=== PATIENT | male | born 1970 | race Caucasian/White ===

== ENCOUNTER → 2018-03-19 14:37 | Outpatient (CLI) | payer BC, SELFPAY ==
[2018-03-19 16:03] LABS: PSA,Total- Diagnostic 5.49 ng/mL (0.0-4.0)
== END ==
PROVIDERS: Family Provider Family Medicine; PCP Family Medicine; Referring Provider Nurse Practitioner Adult Health; Visit Provider Nurse Practitioner Adult Health
DX: R97.20 Elevated prostate specific antigen [PSA] (principal)
CPT/HCPCS: 36415; 84153

== ENCOUNTER → 2018-04-01 16:28 | Outpatient (CLI) | payer BC, SELFPAY ==
[2018-04-01 17:43] LABS: PSA,Total- Diagnostic 5.19 ng/mL (0.0-4.0)
== END ==
PROVIDERS: Family Provider Family Medicine; PCP Family Medicine; Referring Provider Nurse Practitioner Adult Health; Visit Provider Nurse Practitioner Adult Health
DX: R97.20 Elevated prostate specific antigen [PSA] (principal)
CPT/HCPCS: 36415; 84153

== ENCOUNTER → 2018-05-06 16:11 | Outpatient (CLI) | payer BC, SELFPAY ==
[2018-05-06 17:39] LABS: PSA,Total- Diagnostic 4.88 ng/mL (0.0-4.0)
== END ==
PROVIDERS: Family Provider Family Medicine; PCP Family Medicine; Referring Provider Urology; Visit Provider Urology
DX: R97.20 Elevated prostate specific antigen [PSA] (principal)
CPT/HCPCS: 36415; 84153

== ENCOUNTER → 2018-05-15 12:31 | Outpatient (CLI) | payer BC, SELFPAY ==
--- NOTE | 2018-05-15 12:36 | MRI_ITS ---
STUDY: MRI PELVIS WITHOUT AND WITH IV CONTRAST REASON FOR EXAM: Male, 48 years old. Elevated prostate specific antigen. Family history of prostate cancer. TECHNIQUE: Multisequence multiplanar MRI of the pelvis including small FOV views, multi parametric technique including diffusion-weighted imaging, and contrast-enhanced imaging (without multiphase dynamic contrast enhancement). COMPARISON: None. FINDINGS: Body wall soft tissues: No acute process. No inguinal lymphadenopathy. Osseous structures: There is a sharply demarcated densely calcified sclerotic focus within the right femoral head neck junction most consistent with a benign osteoma. No other evidence of blastic metastatic disease. There is hypointensity on T2-weighted imaging within the fatty marrow of the low lumbar spine and multiple sacral vertebral bodies suggesting red marrow reactivation. Intrapelvic lymphadenopathy: There is no apparent retroperitoneal or perirectal lymphadenopathy. Pelvic ovary: Normal appearance of the evaluated portions of the small and large bowel. Unremarkable urinary bladder. Prostate: -Within the base of the right prostate, involving the posterior transitional zone and posterior peripheral zone there is a defined T2 hypointense focus that measures approximately 1.5 cm anterior-posterior, 1.23 cm transverse, and 1.23 cm craniocaudal. This focus exhibits hyperintensity on high B-value diffusion-weighted imaging, hyperintensity on eADC, and defined hypointensity on the ADC map., And postcontrast enhancement in comparison to the surrounding peripheral zone. This focus has mildly spiculated margins. -On the left, mid prostate gland, posterior medial peripheral zone, there is an additional ill-defined focus of T2 hypointensity measuring 1.4 cm anterior-posterior, 1.2 cm transverse, and 1.3 cm craniocaudal, hyperintense signal on DWI, with signal dropout on ADC. Post contrast-enhancement. This lesion extends to the margin of the capsule without apparent penetration of the capsule. There is no apparent extension into the neurovascular bundle. -Within the left mid gland anterior peripheral zone area of heterogeneous T2 hypointensity measuring approximately 1.1 x 1.2 x 0.9 cm, exhibiting hyperintensity on DWI, signal dropout on ADC, mild heterogeneous enhancement. -Within the mid gland on the right, sparing the anterior and posterior peripheral zone on the right there is a somewhat amorphous region of T2 hypointensity measuring approximately 18 x 11 x 9 mm. Also exhibit hyperintensity on DWI, and intermediate hypointensity on ADC, with heterogeneous enhancement. Unremarkable seminal vesicles. MRI/Pelvis W/WO Contrast IMPRESSION: Multiple suspicious lesions of the prostate gland. Described in detail above. No evidence of extracapsular extension or pelvic lymphadenopathy. PI-RADS Category 4. Clinically significant cancer highly likely. T2, N0 Electronically Signed: Walter Bennett MD at 12:33 EDT Tel , Service support ,
== END ==
PROVIDERS: Family Provider Family Medicine; PCP Family Medicine; Referring Provider Nurse Practitioner Adult Health; Visit Provider Nurse Practitioner Adult Health
DX: R97.20 Elevated prostate specific antigen [PSA] (principal); Z80.42 Family history of malignant neoplasm of prostate
CPT/HCPCS: 72197; A9585

== ENCOUNTER → 2018-06-25 08:00 | Outpatient (CLI) | payer BC, SELFPAY ==
--- NOTE | 2018-06-25 | IMM_PTH ---
PATIENT: CHIARA MOLINA LOC: [facility] U#:[id number] AGE/SX: 55/M ROOM: RE06/25/[address]: Dr. Hesham Donnelly MD : 1970 BED: DIS: SPEC #: [id number] RECD: 06/27/18 12:00 STATUS: MERTRoxana REHoda #: [id number] MICHAEL: 06/25/18 00:[address]: Hesham Donnelly DEPT: IMMUNOHISTOCHEMISTRY RECD BY: Nohemy Spicer ENTERED: 06/27/18 12:01 SP TYPE: IMMUNO OTHR DR: Lor Diane Tissues: A - PROSTATE RIGHT B - PROSTATE RIGHT C - PROSTATE RIGHT D - PROSTATE LEFT E - PROSTATE LEFT Procedures: 34BE12 (add) P40 (add) 34BE12 (initial) PHYSICIAN & INSTITUTION [place] [id number] SPECIMEN INFORMATION: Tissue Source: A - Right apex, B - Right mid, C - Right base, D - Left apex, E - Left mid Clinical Info: Elevated PSA Specimen Number: [id number] A-E CPT code: 56029, 13425 x9 METHODOLOGY: Deparaffinized sections of prefer/formalin-fixed tissue or PAP/DQ stained slides are incubated with monoclonal/polyclonal antibodies/oligonucleotide probes. Localization is made via biotin free immunoperoxidase method. Appropriate controls are performed and reacted as expected. Results on target cell population are indicated in the following table: RESULTS: ANTIBODY / CLONE RESULT Block A P40 (BC28) negative 34BE12 (34BE12) negative Block B P40 (BC28) positive, focal 34BE12 (34BE12) positive, focal Block C P40 (BC28) positive 34BE12 (34BE12) positive Block D P40 (BC28) positive 34BE12 (34BE12) positive Block E P40 (BC28) positive 34BE12 (34BE12) positive These tests were developed and their performance characteristics determined by [facility]. They may not have been cleared or approved by the U.S. Food and Drug Administration. The FDA has determined that such clearance or approval is not necessary. INTERPRETATION: A. Right prostate, apex, core biopsy: Focal atypical small acinar proliferation, favor benign. B. Right prostate, mid, core biopsy: Benign prostatic tissue. C. Right prostate, base, core biopsy: Benign prostatic tissue. D. Left prostate, apex, core biopsy: Benign prostatic tissue. E. Left prostate, mid, core biopsy: Benign prostatic tissue. AM:princess 06/27/18
--- NOTE | 2018-06-25 08:00 | PROSBIL_PTH ---
PATIENT: CHIARA MOLINA LOC: [facility] U#:[id number] AGE/SX: 55/M ROOM: RE06/25/[address]: Dr. Hesham Donnelly MD : 1970 BED: DIS: SPEC #: [id number] RECD: 06/25/18 17:01 STATUS: GERSON TSERING #: [id number] MICHAEL: 06/25/18 08:[address]: Hesham Donnelly DEPT: SURGICAL PATHOLOGY RECD BY: Pieter Moyer ENTERED: 06/26/18 12:58 SP TYPE: PROST BX RIANA DR: Lor Diane Tissues: A - PROSTATE RIGHT B - PROSTATE RIGHT C - PROSTATE RIGHT D - PROSTATE LEFT E - PROSTATE LEFT F - PROSTATE LEFT Procedures: PROSTATE BX HEADER OPERATION: Prostate biopsy PRE-OP DIAGNOSIS: Elevated PSA TISSUE SUBMITTED: A - Right apex, B - Right mid, C - Right base, D - Left apex, E - Left mid, F - Left base MICROSCOPIC DIAGNOSIS A. Right prostate, apex, core biopsy: Focal atypical small acinar proliferation, favor benign. See comment. B. Right prostate, mid, core biopsy: Benign prostatic tissue. See comment. C. Right prostate, base, core biopsy: Focal high-grade prostatic intraepithelial neoplasia (HGPIN). See comment. D. Left prostate, apex, core biopsy: Minimal chronic inflammation and focal glandular atrophy. See comment. E. Left prostate, mid, core biopsy: Benign prostatic tissue. See comment. F. Left prostate, base, core biopsy: Focal glandular atrophy. AM:princess 06/27/18 COMMENT A-E. Immunohistochemistry ([id number]) supports the above diagnosis. MICROSCOPIC DESCRIPTION Slides are reviewed. GROSS DESCRIPTION A - Received is one container designated prostate, right apex. The specimen consists of two elongated fragments of light proctor-white soft tissue each measuring 1.5 cm in length and 0.1 cm in diameter. The specimen is totally submitted in one cassette. B - Received is one container designated prostate, right mid. The specimen consists of two elongated fragments of light proctor-white soft tissue measuring 0.8 and 1 cm in length and 0.1 cm in diameter. The specimen is totally submitted in one cassette. C - Received is one container designated prostate, right base. The specimen consists of two elongated fragments of light proctor-white soft tissue measuring 0.5 and 1 cm in length and 0.1 cm in diameter. The specimen is totally submitted in one cassette. D - Received is one container designated prostate, left apex. The specimen consists of two elongated fragments of light proctor-white soft tissue measuring 1.5 and 1.8 cm in length and 0.1 cm in diameter. The specimen is totally submitted in one cassette. E - Received is one container designated prostate, left mid. The specimen consists of two elongated fragments of light proctor-white soft tissue measuring 1.5 and 2 cm in length and 0.1 cm in diameter. The specimen is totally submitted in one cassette. F - Received is one container designated prostate, left base. The specimen consists of two elongated fragments of light proctor-white soft tissue each measuring 1.2 cm in length and 0.1 cm in diameter. The specimen is totally submitted in one cassette. / SJ:rg 06/26/18 TC:5 CPT: 56428 x6
== END ==
PROVIDERS: Referring Provider Urology; Visit Provider Urology
DX: R97.20 Elevated prostate specific antigen [PSA] (principal)
CPT/HCPCS: 88305; 88341; 88342; G0416

== ENCOUNTER → 2019-01-10 16:00 | Outpatient (CLI) | payer BC, SELFPAY ==
[2019-01-10 17:56] LABS: PSA,Total- Diagnostic 8.77 ng/mL (0.0-4.0)
== END ==
PROVIDERS: Family Provider Family Medicine; PCP Family Medicine; Referring Provider Urology; Visit Provider Urology
DX: R97.20 Elevated prostate specific antigen [PSA] (principal)
CPT/HCPCS: 36415; 84153

== ENCOUNTER → 2019-05-16 16:00 | Outpatient (CLI) | payer BC, SELFPAY ==
[2019-05-16 17:15] LABS: PSA,Total- Diagnostic 7.29 ng/mL (0.0-4.0)
[2019-05-18 14:03] LABS: PSA, Free 1.58 ng/mL; PSA, Free % 22.3 % (.); PSA, Total Ultrasensitive 7.1 ng/mL (0.0-4.0)
== END ==
PROVIDERS: PCP Family Medicine; Referring Provider Urology; Visit Provider Urology
DX: R97.20 Elevated prostate specific antigen [PSA] (principal)
CPT/HCPCS: 36415; 84153; 84154

== ENCOUNTER 2019-05-28 08:18 | Day surgery (SDC) | payer BC, SELFPAY ==
--- NOTE | 2019-05-28 | IMM_PTH ---
PATIENT: CHIARA MOLINA LOC: [facility] [place] U#:[id number] AGE/SX: 49/M ROOM: RE05/28/[address]: Dr. Hesham Donnelly MD : 1970 BED: DIS: 05/28/2019 SPEC #: [id number] RECD: 05/29/19 12:24 STATUS: GERSON REQ #: [id number] MICHAEL: 05/28/19 00:[address]: Hesham Donnelly DEPT: IMMUNOHISTOCHEMISTRY RECD BY: Nohemy Spicer ENTERED: 05/29/19 12:26 SP TYPE: IMMUNO OTHR DR: Dr. Shanna Yeager, DO Tissues: A - PROSTATE RIGHT B - PROSTATE RIGHT C - PROSTATE RIGHT E - PROSTATE RIGHT F - PROSTATE RIGHT K - PROSTATE LEFT Procedures: 34BE12 (add) P40 (add) 34BE12 (initial) PHYSICIAN & INSTITUTION [place] [id number] SPECIMEN INFORMATION: Tissue Source: A - Right lateral base, B - Right anterior extreme lateral base, C - Right lateral apex, E - Right mid lateral, F - Right mid anterior extreme lateral, K - Left apex lateral Clinical Info: Elevated PSA Specimen Number: [id number] A, B, C, E, F, K CPT code: 79982, 74099 x11 METHODOLOGY: Deparaffinized sections of prefer/formalin-fixed tissue or PAP/DQ stained slides are incubated with monoclonal/polyclonal antibodies/oligonucleotide probes. Localization is made via biotin free immunoperoxidase method. Appropriate controls are performed and reacted as expected. Results on target cell population are indicated in the following table: RESULTS: ANTIBODY / CLONE RESULT Block A 34BE12 (34BE12) positive P40 (BC28) positive Block B 34BE12 (34BE12) positive P40 (BC28) positive Block C 34BE12 (34BE12) positive P40 (BC28) positive Block E 34BE12 (34BE12) positive P40 (BC28) positive Block F 34BE12 (34BE12) positive P40 (BC28) positive Block K 34BE12 (34BE12) positive P40 (BC28) positive These tests were developed and their performance characteristics determined by [facility]. They may not have been cleared or approved by the U.S. Food and Drug Administration. The FDA has determined that such clearance or approval is not necessary. The above immunohistochemical/dualISH markers are ordered and reviewed by the Pathologist. INTERPRETATION: A. Prostate, right lateral base, needle core biopsy: Benign prostatic tissue. B. Prostate, right anterior extreme lateral base, needle core biopsy: Benign prostatic tissue. C. Prostate, right lateral apex, needle core biopsy: Benign prostatic tissue. E. Prostate, right mid lateral, needle core biopsy: Benign prostatic tissue. F. Prostate, right mid anterior extreme lateral, needle core biopsy: Benign prostatic tissue. K. Prostate, left apex lateral, needle core biopsy: Benign prostatic tissue. AM:princess 05/30/19
--- NOTE | 2019-05-28 | PROSBIL_PTH ---
PATIENT: CHIARA MOLINA LOC: [facility] [place] U#:[id number] AGE/SX: 49/M ROOM: RE05/28/[address]: Dr. Hesham Donnelly MD : 1970 BED: DIS: 05/28/2019 SPEC #: [id number] RECD: 05/28/19 13:05 STATUS: GERSON RE #: [id number] MICHAEL: 05/28/19 00:[address]: Hesham Donnelly DEPT: SURGICAL PATHOLOGY RECD BY: Pieter Moyer ENTERED: 05/28/19 13:08 SP TYPE: PROST BX RIANA DR: Dr. Shanna Yeager, DO Tissues: A - PROSTATE RIGHT B - PROSTATE RIGHT C - PROSTATE RIGHT D - PROSTATE RIGHT E - PROSTATE RIGHT F - PROSTATE RIGHT G - PROSTATE LEFT H - PROSTATE LEFT I - PROSTATE LEFT J - PROSTATE LEFT K - PROSTATE LEFT L - PROSTATE LEFT Procedures: PROSTATE BX HEADER OPERATION: Transrectal ultrasound-guided prostate biopsy PRE-OP DIAGNOSIS: Elevated PSA TISSUE SUBMITTED: A - Right base lateral, B - Right base anterior extreme lateral, C - Right apex lateral, D - Right apex anterior extreme lateral, E - Right middle lateral, F - Right middle anterior extreme lateral, G - Left base lateral, H - Left base anterior extreme lateral, I - Left middle lateral, J - Left middle anterior extreme lateral, K - Left apex lateral, L - Left apex anterior extreme lateral MICROSCOPIC DIAGNOSIS A. Prostate, right lateral base, needle core biopsy: Focal glandular atrophy. See comment. B. Prostate, right anterior extreme lateral base, needle core biopsy: Focal glandular atrophy. See comment. C. Prostate, right lateral apex, needle core biopsy: Minimal chronic inflammation. See comment. D. Prostate, right anterior extreme lateral apex, needle core biopsy: Focal high-grade prostatic intraepithelial neoplasia (HGPIN). E. Prostate, right mid lateral, needle core biopsy: Minimal chronic inflammation. Focal acute inflammation. Focal glandular atrophy. See comment. F. Prostate, right mid anterior extreme lateral, needle core biopsy: Mild chronic inflammation and focal acute inflammation. Focal glandular atrophy. See comment. G. Prostate, left lateral base, needle core biopsy: Minimal chronic inflammation. H. Prostate, left anterior, extreme lateral base, needle core biopsy: Benign prostatic tissue. I. Prostate, left mid lateral, needle core biopsy: Focal glandular atrophy. J. Prostate, left mid anterior extreme lateral, needle core biopsy: Focal glandular atrophy. K. Prostate, left apex lateral, needle core biopsy: Focal glandular atrophy. See comment. L. Prostate, left anterior extreme lateral apex, needle core biopsy: Benign prostatic tissue. AM:princess 05/29/19 COMMENT A, B, C, E, F & K - Immunohistochemistry ([id number]) supports the above diagnosis. MICROSCOPIC DESCRIPTION Slides are reviewed. GROSS DESCRIPTION A - Received is one container designated prostate, right base lateral. The specimen consists of two elongated fragments of light proctor-white soft tissue each measuring 1 cm in length and 0.1 cm in diameter. The specimen is totally submitted in one cassette. B - Received is one container designated prostate, right base anterior extreme lateral. The specimen consists of two elongated fragments of light proctor-white soft tissue each measuring 1 cm in length and 0.1 cm in diameter. The specimen is totally submitted in one cassette. C - Received is one container designated prostate, right middle lateral. The specimen consists of two elongated fragments of light proctor-white soft tissue each measuring 1.5 cm in length and 0.1 cm in diameter. The specimen is totally submitted in one cassette. D - Received is one container designated prostate, right middle anterior extreme lateral. The specimen consists of two elongated fragments of light proctor-white soft tissue each measuring 1.5 cm in length and 0.1 cm in diameter. The specimen is totally submitted in one cassette. E - Received is one container designated prostate, right lateral right apex. The specimen consists of two elongated fragments of light proctor-white soft tissue each measuring 1.5 cm in length and 0.1 cm in diameter. The specimen is totally submitted in one cassette. F - Received is one container designated prostate, right apex extreme lateral anterior. The specimen consists of two elongated fragments of light proctor-white soft tissue each measuring 1.5 cm in length and 0.1 cm in diameter. The specimen is totally submitted in one cassette. G - Received is one container designated prostate, left base lateral. The specimen consists of two elongated fragments of light rpoctor-white soft tissue each measuring 1 cm in length and 0.1 cm in diameter. The specimen is totally submitted in one cassette. H - Received is one container designated prostate, left extreme anterior lateral. The specimen consists of two elongated fragments of light proctor-white soft tissue each measuring 1 cm in length and 0.1 cm in diameter. The specimen is totally submitted in one cassette. I - Received is one container designated prostate, left middle lateral. The specimen consists of two elongated fragments of light proctor-white soft tissue each measuring 1.5 cm in length and 0.1 cm in diameter. The specimen is totally submitted in one cassette. J - Received is one container designated prostate, left middle anterior extreme lateral. The specimen consists of two elongated fragments of light proctor-white soft tissue each measuring 1 cm in length and 0.1 cm in diameter. The specimen is totally submitted in one cassette. K - Received is one container designated prostate, left apex lateral. The specimen consists of two elongated fragments of light proctor-white soft tissue each measuring 1.5 cm in length and 0.1 cm in diameter. The specimen is totally submitted in one cassette. L - Received is one container designated prostate, left apex anterior extreme lateral. The specimen consists of two elongated fragments of light proctor-white soft tissue each measuring 2 cm in length and 0.1 cm in diameter. The specimen is totally submitted in one cassette. / AM:princess 05/28/19 TC:5 CPT: 78609 x12
--- NOTE | 2019-05-28 08:25 | EKG12_ITS ---
Test Reason : PRE OP Blood Pressure : / mmHG Vent. Rate : 063 BPM Atrial Rate : 063 BPM P-R Int : 250 ms QRS Dur : 118 ms QT Int : 402 ms P-R-T Axes : 053 -60 040 degrees QTc Int : 411 ms Sinus rhythm with 1st degree A-V block Left anterior fascicular block Abnormal ECG No previous ECGs available Confirmed by GORDON CORTES ([id number]), newspaper photo editor HEATHER MIRANDA ([id number]) on 05/29/2019 7:51:09 AM Referred By: Hesham Donnelly Confirmed By:GORDON CORTES
[2019-05-28 08:39] VITALS: BP 124/79; PULSE 79; RESP 18; TEMP 36.7; O2SAT 100; BMI 22.0
[2019-05-28 08:41] LABS: Hematocrit 42.8 % (40-54); Hemoglobin 14.3 g/dL (13.0-16.5); Mean Corp Hgb Conc 33.4 g/dL (32-36); Mean Corpuscular Hgb 31.3 pg (27.0-32.0); Mean Corpuscular Volume 93.7 fL (80-94); Mean Platelet Vol. 9.2 fl (6.2-12.0); Platelet Count 227 K/mm3 (150-450); RBC Distribution Width CV 12.9 % (11.6-14.6); RBC Distribution Width SD 43.7 fl (35.1-43.9); Red Blood Count 4.57 M/mm3 (4.6-6.2); White Blood Count 4.1 K/mm3 (4.4-11.0)
[2019-05-28 08:51] LABS: Anion Gap 7 (5-15); BUN 12 mg/dL (7-18); BUN/Creat Ratio 14.3 RATIO (10-20); Calcium,Total 9.8 mg/dL (8.5-10.1); Chloride 106 mmol/L (98-107); Creatinine, Serum 0.84 mg/dL (0.70-1.30); EST Glomerular Filtration Rate 103 mL/min (>60); Est Glom Filt Rate - Afr Amer 125 mL/min (>60); Estimated Creatinine Clearance 102.98 ml/min; Glucose 87 mg/dL (74-106); Potassium 3.3 mmol/L (3.5-5.1); Sodium Level 141 mmol/L (136-145)
[2019-05-28] MEDS: Lactated Ringers 1,000 ML 100 ML IV (08:52)
[2019-05-28] MEDS: Ciprofloxacin 400 MG/200 ML BAG 200 MG IV (08:53)
--- NOTE | 2019-05-28 10:00 | US_ITS ---
PROCEDURE: Ultrasound Guided prostate biopsy. CLINICAL HISTORY: Male, 49 years old. PROSTATE BX- PROSTATE LESIONS CONSENT: Time-Out Called: Yes Consent form signed: YES PT-PTT Levels Checked: Yes SEDATION: TECHNIQUE: FINDINGS: Under direct sonographic guidance, the surgeon performed multiple core biopsy of the prostate. US/Prostate Biopsy IMPRESSION: Ultrasound guidance for multiple core biopsies of the prostate gland. Electronically Signed: Boston Katz, at 12:16 EDT , Service support ,
--- NOTE | 2019-05-28 10:28 | DCINST_ITS ---
Discharge Diet: Light diet - advance as tolerated Discharge Activity: Return to Normal Activity Call your doctor if your incision/area has: - - Fevers, chills or rigors Call your doctor if you observe: Fever of 101 or Higher Allergies/Adverse Reactions: Allergies No Known Allergies Allergy (Verified 05/28/19 08:33) Medications to take at Discharge Ciprofloxacin [Cipro] 500 mg PO BID 05/27/19 Primary Care Physician: Shanna Yeager DO [Primary Care Provider] - Test Results: Test results from this visit will be discussed in further detail at your follow- up appointment, if applicable. Please Follow Up With: Hesham Donnelly MD When: call to get results in 10 days
--- NOTE | 2019-05-28 10:59 | PCM.OPRPT ---
Problem List (1) Elevated PSA Status: Acute Report of Operation Date of Procedure: 05/28/19 Pre-Operative Diagnosis: Elevated PSA prior negative biopsy Post-Operative Diagnosis: Same Surgery/Procedure Performed:: Transrectal ultrasonography of the prostate, transrectal guided biopsy of the prostate saturation Description of Surgical Findings:: Patient presents to the hospital with a history of an elevated PSA and working to proceed with a transrectal prostate biopsy under anesthesia. We talked about the risk of the procedure including bleeding, infection, and very rare risk of sepsis or severe infection. We also discussed the possibility that the biopsy may miss cancer and up to 15% of patients and he may require further treatments or other biopsies in the future. He was also asked to call the office to follow-up after the procedure to follow-up on his prostate biopsies. Patient was taken back to the operating room after smooth induction of anesthesia he was placed supine on the table he was then repositioned with the legs in lithotomy in stirrups. We made sure all his pressure points were padded. He was loaded with IV antibiotics prior to the procedure. He had SCDs on for DVT prophylaxis. We then introduced an ultrasound probe into the rectum and performed ultrasonography of the prostate identifying the prostate seminal vesicles, the Denonvilliers' fascia, the base the mid and the apex of the prostate we determined a size of the prostate on ultrasonography and the prostate measured 38 g on ultrasound. The transition zone was normal . No hypoechoic areas identified in the prostate . We then proceeded with a systematic biopsy of the prostate with 4 at the base and 4 at the mid and 4 at the apex of the prostate on both the left and right side. Good samples were obtained and a total of 24 biopsies were obtained from the prostate, systematic fashion. Pressure was held until there was no more bleeding and then the patient's anesthetic was reversed he was taken back to the PACU in good condition and he will follow-up as directed. Type of Anesthesia:: General Drains: none - Admit VTE Documentation VTE Present on Admission: No
[2019-05-28 11:08] VITALS: BP 118/68; BP 124/79; PULSE 66; RESP 16; TEMP 36.8; O2SAT 95
[2019-05-28 11:15] VITALS: BP 113/68; BP 124/79; PULSE 68; RESP 16; O2SAT 97
[2019-05-28 11:30] VITALS: BP 114/71; BP 124/79; PULSE 70; RESP 16; TEMP 36.7; O2SAT 97
[2019-05-28 12:00] VITALS: BP 124/79
== END 2019-05-28 12:07 | disposition home or self-care (01) ==
LOC: SDC 08:19 → AC 08:20
PROVIDERS: Anesthesiology; PCP Family Medicine; Referring Provider Urology; Visit Provider Urology
PROC: (CPT 55700; principal; 2019-05-28 10:15)
DX: N42.31 Prostatic intraepithelial neoplasia (principal); N41.1 Chronic prostatitis; N40.1 Benign prostatic hyperplasia with lower urinary tract symptoms; R97.20 Elevated prostate specific antigen [PSA]; G71.11 Myotonic muscular dystrophy
CPT/HCPCS: 36415; 55700; 76942; 80048; 85027; 88305; 88341; 88342; 93005; J7120; G0416; J0744; J2405

== ENCOUNTER 2019-07-24 10:06 | Emergency (ER) | payer BC, SELFPAY ==
[2019-07-24 10:08] VITALS: BP 141/85; PULSE 70; RESP 16; TEMP 35.5; O2SAT 95; BMI 22.1
--- NOTE | 2019-07-24 10:24 | CT_ITS ---
STUDY: CT ABDOMEN AND PELVIS WITHOUT CONTRAST REASON FOR EXAM: Male, 49 years old. RT FLANK PAIN RADIATION DOSAGE (If Supplied By Facility): CTDIvol = ( 6.36 ) mGy, DLP = ( 316.13 ) mGycm TECHNIQUE: Transaxial images were obtained from the dome of the diaphragm to the symphysis pubis without oral contrast, and without intravenous contrast. Sagittal and coronal images were reconstructed. Individualized dose optimization techniques were used for this CT. COMPARISON: None. FINDINGS: The visualized lung bases are unremarkable. The visualized portions of the heart are within normal limits. Normal liver. Normal gallbladder and extrahepatic biliary system. Normal spleen. Normal pancreas. Normal bilateral adrenal glands. There is a stone in the right kidney measures 12 mm. There is moderate right hydronephrosis due to presence of 3 mm stone in the distal end of the right ureter at ureterovesical junction. 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 Normal left kidney. Normal visualized stomach. Normal small intestine. Normal colon. The appendix is visualized and appears normal. Normal abdominal aorta. Normal inferior vena cava. Normal retroperitoneum. Normal urinary bladder. Normal abdominal wall. Normal osseous structures. CT/Abdomen/Pelvis without Cont IMPRESSION: There is a stone in the right kidney measures 12 mm. There is moderate right hydronephrosis due to presence of 3 mm stone in the distal end of the right ureter at ureterovesical junction. 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 Electronically Signed: Pema Kan, at 11:19 EDT Tel , Service support ,
--- NOTE | 2019-07-24 10:25 | ED.VIS.GEN ---
History of Present Illness Chief Complaint: Flank Pain Informant: Patient Onset: Today Narrative: Patient states that at approximately 090 0 hours today he was on a conference call with work. He had a sudden onset of right CVA pain. Describes as severe pain. Radiates slightly anterior towards the abdomen. He states that he has not had anything to eat or drink today. He is never experienced this pain. He states at first he thought it could be a muscle cramp but states it feels deeper to the muscle. He states he can push on his back and it does not hurt. He denies any testicular or penile pain no urinary symptoms. Normal bowel movement this morning. No fevers or rashes. No cough shortness of breath or chest pain. Denies any leg symptoms. No known clotting disorders. He states he has a history of muscular dystrophy. He currently takes no medications. Past Medical History - Allergies and Home Meds Allergies/Adverse Reactions: Allergies No Known Allergies Allergy (Verified 07/24/19 10:10) Primary Care Physician: Shanna Yeager DO [Primary Care Provider] - Smoking Status: Never smoker Review of Systems General: Denies: Chills, Fever, Sweats Eyes: Denies: Visual changes - bilaterally, Diplopia ENT: Denies: Rhinorrhea, Sore throat Cardiovascular: Denies: Chest pain, Palpitations Respiratory: Denies: Dyspnea, Cough, Dyspnea on exertion Gastrointestinal: Reports: Abdominal pain. Denies: Nausea, Vomiting, Diarrhea, Melena, Hematochezia Genitourinary: Denies: Dysuria, Hematuria, Frequency Musculoskeletal: Reports: Back pain. Denies: Extremity Pain Skin: Denies: Rash, Wounds Neurological: Denies: Headache, Weakness, Numbness Physical Exam Vital Signs/Narrative: Vital Signs Temp Pulse Resp BP Pulse Ox 07/24/19 10:08 96 F L 70 16 141/85 H 95 Inital Vital Signs reviewed: Yes General: Well nourished, Well developed, - - Patient appears in pain laying on his left side and writhing at times. Head: Normocephalic, Atraumatic Eyes: Perrl, EOMI ENT: Moist mucous membranes, No rhinorrhea Neck: Supple, Nontender Cardiovascular: Regular rate, Regular rhythm, No murmurs Respiratory: No distress, CTA bilaterally, Chest nontender Abdomen: Soft, Nontender, Nondistended, Normal bowel sounds Back: - - Though the patient tells me it does not hurt to touch his back when I touch his right CVA area he has tenderness to palpation. No palpable muscle spasm. No ecchymosis. No rash. Extremities: Nontender, No edema Skin: Normal color, No rash Neurological: Alert, Oriented x3, Cranial nerves II-XII grossly intact, Normal Strength, Normal Sensation Psychological: Normal affect, Normal Mood Diagnostic/Tx/Re-eval Clinical Impression(s) from Imaging Studies Abdomen/Pelvis CT 07/24/19 10:24 IMPRESSION: There is a stone in the right kidney measures 12 mm. There is moderate right hydronephrosis due to presence of 3 mm stone in the distal end of the right ureter at ureterovesical junction. 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 Electronically Signed: Pema Kan, at 11:19 EDT Tel , Service support , Laboratory Last Values WBC 5.6 K/mm3 (4.4-11.0) 07/24/19 10:27 RBC 4.64 M/mm3 (4.6-6.2) 07/24/19 10:27 Hgb 14.2 g/dL (13.0-16.5) 07/24/19 10:27 Hct 42.5 % (40-54) 07/24/19 10:27 MCV 91.6 fL (80-94) 07/24/19 10:27 MCH 30.6 pg (27.0-32.0) 07/24/19 10:27 MCHC 33.4 g/dL (32-36) 07/24/19 10:27 RDW Std Deviation 44.1 fl (35.1-43.9) H 07/24/19 10:27 RDW Coeff of [place]acha 13.2 % (11.6-14.6) 07/24/19 10:27 Plt Count 252 K/mm3 (150-450) 07/24/19 10:27 MPV 9.0 fl (6.2-12.0) 07/24/19 10:27 Immature Gran % (Auto) 0.500 % (0.0-0.9) 07/24/19 10:27 Neut % (Auto) 52.8 % (47-70) 07/24/19 10:27 Lymph % (Auto) 39.0 % (19-41) 07/24/19 10:27 [place] % (Auto) 6.2 % (0-10) 07/24/19 10:27 Eos % (Auto) 1.1 % (0-5) 07/24/19 10:27 Baso % (Auto) 0.4 % (0-1) 07/24/19 10:27 Absolute Neuts (auto) 3.0 X10^3/uL (2.0-7.7) 07/24/19 10:27 Absolute Lymphs (auto) 2.20 X10^3/uL (0.83-4.51) 07/24/19 10:27 Nucleated RBC % 0 % (0-5) 07/24/19 10:27 Sodium 139 mmol/L (136-145) 07/24/19 10:27 Potassium 3.0 mmol/L (3.5-5.1) L 07/24/19 10:27 Chloride 105 mmol/L (98-107) 07/24/19 10:27 Carbon Dioxide 24.0 mmol/L (21.0-32.0) 07/24/19 10:27 Anion Gap 10 (5-15) 07/24/19 10:27 BUN 11 mg/dL (7-18) 07/24/19 10:27 Creatinine 0.86 mg/dL (0.70-1.30) 07/24/19 10:27 Estim Creat Clear Calc 101.09 ml/min 07/24/19 10:27 Est GFR (MDRD) Af Amer 121 mL/min (>60) 07/24/19 10:27 Est GFR (MDRD) Non-Af 100 mL/min (>60) 07/24/19 10:27 BUN/Creatinine Ratio 12.7 RATIO (10-20) 07/24/19 10:27 Glucose 157 mg/dL (74-106) H 07/24/19 10:27 Calcium 9.9 mg/dL (8.5-10.1) 07/24/19 10:27 Total Bilirubin 1.40 mg/dL (0.20-1.00) H 07/24/19 10:27 AST 47 U/L (15-37) H 07/24/19 10:27 ALT 53 U/L (16-61) 07/24/19 10:27 Alkaline Phosphatase 107 U/L (45-117) 07/24/19 10:27 Total Protein 7.2 g/dL (6.4-8.2) 07/24/19 10:27 Albumin 3.6 g/dL (3.2-5.0) 07/24/19 10:27 Globulin 3.6 g/dL (2.2-4.2) 07/24/19 10:27 Albumin/Globulin Ratio 1.0 RATIO (0.9-2.4) 07/24/19 10:27 Lipase 48 U/L (73-393) L 07/24/19 10:27 Urine Color Yellow (Yellow) 07/24/19 11:33 Urine Clarity Clear (Clear) 07/24/19 11:33 Urine pH 6.5 (5.0 - 8.0) 07/24/19 11:33 Ur Specific [place] 1.020 (1.002-1.030) 07/24/19 11:33 Urine Protein 30 mg/dl (Negative) H 07/24/19 11:33 Urine Glucose (UA) 100 mg/dl (Normal) H 07/24/19 11:33 Urine Ketones 150 mg/dl (Negative) H 07/24/19 11:33 Urine Occult Blood 250 /ul (Negative) H 07/24/19 11:33 Urine Nitrite Negative (Negative) 07/24/19 11:33 Urine Bilirubin Negative mg/dL (Negative) 07/24/19 11:33 Urine Urobilinogen Normal mg/dl (Normal) 07/24/19 11:33 Ur Leukocyte Esterase 100 /ul (Negative) H 07/24/19 11:33 Urine RBC 25-50 SEEN /hpf (0-5) 07/24/19 11:33 Urine WBC 5-10 SEEN /hpf (0-5) 07/24/19 11:33 Ur Squamous Epith Cells 0 SEEN /hpf (0-5) 07/24/19 11:33 Urine Bacteria 0 SEEN /hpf (None Seen) 07/24/19 11:33 Urine Mucus 1+ /hpf (<or=2+) 07/24/19 11:33 - Medical Decision Making IV was established patient received Toradol morphine and Zofran and IV fluids. His pain is overall improved. Patient has some hematuria and CT reveals a distal ureteral stone. Patient has appointment today with Dr. Donnelly for follow-up. I write for pain and nausea medication. Urine strainer given. ED Disposition - Plan for ED Patient: Disposition: Home or Assisted Living Diagnosis: Right ureteral calculus Instructions: ED Renal Stone w Colic Prescriptions: Oxycodone [Oxyir] 5 mg PO Q6H PRN PRN 3 Days #12 tablet PRN Reason: pain Transmission Status: Sent to [facility] Ondansetron [Zofran Odt] 4 mg PO Q6H PRN PRN #14 tab PRN Reason: Nausea Transmission Status: Pending to [facility] Referrals: Hesham Donnelly MD [STAFF PHYSICIAN] - Keep [facility] appointment
[2019-07-24] MEDS: Ondansetron 4 MG/2 ML Vial IV (10:32)
[2019-07-24] MEDS: Morphine 4 MG/ML Syringe IV (10:32)
[2019-07-24] MEDS: Ketorolac 30 MG/ML Syringe IV (10:33)
[2019-07-24] MEDS: 0.9% Normal Saline 1,000 ML 250 ML IV (10:34)
[2019-07-24 10:36] LABS: Basophil# 0.02 X10^3/uL; Basophil% 0.4 % (0-1); Eosinophil# 0.06 X10^3/uL; Eosinophils% 1.1 % (0-5); Hematocrit 42.5 % (40-54); Hemoglobin 14.2 g/dL (13.0-16.5); Mean Corp Hgb Conc 33.4 g/dL (32-36); Mean Corpuscular Hgb 30.6 pg (27.0-32.0); Mean Corpuscular Volume 91.6 fL (80-94); Monocyte# 0.35 X10^3/uL; Monocyte% 6.2 % (0-10); NRBC Flagged by Analyzer 0 % (0-5); Neutrophil # 2.98 X10^3/uL (2.7-7.7); Neutrophil % 52.8 % (47-70); Platelet Count 252 K/mm3 (150-450); RBC Distribution Width CV 13.2 % (11.6-14.6); RBC Distribution Width SD 44.1 fl (35.1-43.9); Red Blood Count 4.64 M/mm3 (4.6-6.2); White Blood Count 5.6 K/mm3 (4.4-11.0)
[2019-07-24 10:52] LABS: AST(SGOT) 47 U/L (15-37); Alanine Aminotransfer ALT/SGPT 53 U/L (16-61); Albumin, Serum 3.6 g/dL (3.2-5.0); Alkaline Phosphatase 107 U/L (45-117); Anion Gap 10 (5-15); BUN 11 mg/dL (7-18); BUN/Creat Ratio 12.7 RATIO (10-20); Calcium,Total 9.9 mg/dL (8.5-10.1); Chloride 105 mmol/L (98-107); Creatinine, Serum 0.86 mg/dL (0.70-1.30); EST Glomerular Filtration Rate 100 mL/min (>60); Est Glom Filt Rate - Afr Amer 121 mL/min (>60); Estimated Creatinine Clearance 101.09 ml/min; Globulin 3.6 g/dL (2.2-4.2); Glucose 157 mg/dL (74-106); Lipase 48 U/L (73-393); Protein, Total 7.2 g/dL (6.4-8.2); Sodium Level 139 mmol/L (136-145)
[2019-07-24 11:39] LABS: Bacteria 0 SEEN /hpf (None Seen); Squamous Epithelial Cells - UA 0 SEEN /hpf (0-5)
[2019-07-24 11:46] LABS: Color, Urine Yellow (Yellow); Glucose, Dipstick 100 mg/dl (Normal); Leukocyte Esterase-Dipstick 100 /ul (Negative); Nitrite-Dipstick Negative (Negative); Occult Blood-Urine 250 /ul (Negative); Protein-Dipstick 30 mg/dl (Negative); Urine Bilirubin Dipstick Negative (Negative); Urine Clarity Clear (Clear); Urine Urobilinogen Normal (Normal); Urine pH 6.5 (5.0 - 8.0)
[2019-07-24 12:14] LABS: Ketone-Dipstick 150 mg/dl (Negative)
[2019-07-24 12:29] LABS: Mucous, Urine 1+ /hpf (<or=2+); Red Blood Cells-Urine 25-50 SEEN /hpf (0-5); White Blood Cells 5-10 SEEN /hpf (0-5)
[2019-07-24 12:55] VITALS: BP 136/76; PULSE 68; RESP 16; O2SAT 97
== END 2019-07-24 12:57 | disposition home or self-care (01) ==
PROVIDERS: Emergency Provider Emergency Medicine; PCP Family Medicine
DX: N20.1 Calculus of ureter (principal); G71.00 Muscular dystrophy, unspecified
CPT/HCPCS: 74176; 80053; 81001; 83690; 85025; 96361; 96374; 96375; 99284; J7030; J2405

== ENCOUNTER → 2019-07-29 17:29 | Outpatient (CLI) | payer BC, SELFPAY ==
[2019-07-24 10:08] VITALS: BMI 22.1
== END ==
PROVIDERS: PCP Family Medicine; Visit Provider Urology
DX: N20.0 Calculus of kidney (principal)
CPT/HCPCS: 82360

== ENCOUNTER 2019-08-01 10:57 | Day surgery (SDC) | payer BC, SELFPAY ==
[2019-08-01] VITALS (8 sets, daily range): BP systolic 114–144; BP diastolic 67–88; PULSE 62–81; RESP 14–16; TEMP 36.4–37.2; O2SAT 95–99; BMI 21.1
--- NOTE | 2019-08-01 10:57 | RAD_ITS ---
STUDY: X-RAY - ABDOMEN/PELVIS REASON FOR EXAM: Male, 49 years old. PRE-OP FOR RIGHT SIDED STONE, ESWL AND STENT PLACEMENT TECHNIQUE: Single AP view of the abdomen / pelvis. COMPARISON: None. FINDINGS: There is an unremarkable bowel gas pattern. There is a 8.6 mm calculus in the region of the right renal pelvis. There are calcified phleboliths in the pelvis. Normal visualized osseous structures. RAD/Abdomen Single View IMPRESSION: 8.6 mm calculus in the right renal pelvis. Electronically Signed: Boston Katz, at 11:13 EDT , Service support ,
[2019-08-01] MEDS: Lactated Ringers 1,000 ML 100 ML IV ×2 (11:40→14:45)
--- NOTE | 2019-08-01 13:18 | HP.PCM_ITS ---
Problem List (1) Right renal stone Status: Acute History of Present Illness Date of Admission: 08/01/19 Chief Complaint: Right renal calculi The patient is a 49 year old male who presented to the emergency room and passed a small fragment on CAT scan he has a large 12 mm stone in the upper pole the right kidney. Today we can proceed with shockwave lithotripsy and treatment of the stone in the right kidney given the size we may also place a stent on the right side before the treatment. Past Medical History Allergies No Known Allergies Allergy (Verified 08/01/19 11:33) Home Medications: Ambulatory Orders Medication Instructions Recorded Ondansetron [Zofran Odt] 4 mg PO Q6H PRN PRN #14 tab 07/24/19 Cephalexin [Keflex] 500 mg PO Q8 #10 cap 08/01/19 Hydrocodone/Acetaminophen [[place] 1 each PO Q4H PRN PRN 5 Days #14 08/01/19 5-325 Tablet] tablet Surgical History: no surgical history Smoking Status: Unknown if ever smoked Tobacco Use: Non-smoker Review of Systems Constitutional: Denies: Chills, Fever, Weight Change HEENT: Denies: Head Aches, Sinus Congestion, Sinus Drainage Cardiovascular: Denies: Chest Pain, Palpitations Respiratory: Denies: Cough, Shortness of breath at rest, Sputum production Gastrointestinal: Denies: Abdominal Pain, Nausea, Vomiting Genitourinary: Denies: Dysuria Musculoskeletal: Denies: Joint Pain, Joint Tenderness Skin: Denies: Rash, Wounds Neurological: Denies: Numbness, Tingling, Focal weakness Psychiatric: Denies: Anxiety, Depression, Homicidal Ideations, Suicidal Ideations Hematologic/ Lymphatic: Denies: Easy Bruising, Easy Bleeding VTE Information - Inpt Only VTE Present on Admission: No VTE Mechan Device Prophylaxis: SCD's Patient Problems: Active and Suspected Problems Right renal stone (Acute) - Physical Exam Vitals/I&O's: Vital Signs Temp Pulse Resp BP Pulse Ox 99.0 F 69 16 114/67 99 08/01/19 11:34 08/01/19 11:34 08/01/19 11:34 08/01/19 11:34 08/01/19 11:34 Oxygen Delivery Method Room Air Weight: 65 kg Body Mass Index (BMI) 21.1 General: Alert, Oriented x3, Cooperative HEENT: Atraumatic, PERRLA, EOMI, Normocephalic Neck: Supple, No JVD, Negative Carotid Bruits Lungs: Clear to auscultation, Normal air movement Cardiovascular: Regular rate, No murmurs Abdomen: Bowel Sounds Present, Soft, Non Tender Extremities: No edema, Capillary Refill Less than 3 Seconds Skin: No rashes, No breakdown Musculoskeletal: No Tenderness to Palpation of Joints or Extremities Neurological: Cranial nerves II-XII grossly intact Psych/Mental Status: Normal Affect, Appropriate Microbiology Past 72 Hours 07/31/19 10:10 Mucosa - Nasopharyngeal Coronavirus COVID-19 PCR - Final Current Medications Cefazolin Sodium 2 gm/ Sodium (Chloride) 110 mls @ 150 mls/hr IV PREOP ONE Stop: 08/01/19 13:33 Lactated Ringer's () 1,000 mls @ 100 mls/hr IV .Q10H TEA Last Admin: 08/01/19 11:40 Dose: 100 mls/hr Documented by: Assessment/Plan All Active Problems Elevated PSA (Acute) Right renal stone (Acute) 49-year-old male with a large stone in the right kidney plan for cystoscopy right stent placement and right shockwave lithotripsy. He understands of the large hard stone possible may need more than one procedure possible he may need multiple procedures to treat the stone. Also taught the risk of the procedure including the risk of infection from the stent placement and the risk of bleeding from the kidney from the shockwave lithotripsy or hematoma formation And the risk that the stone may not break and may need more than one procedure.
--- NOTE | 2019-08-01 13:24 | PCM.DC.URO ---
Discharge Diet: No Restrictions, Light diet - advance as tolerated Discharge Activity: Return to Normal Activity, May Not Drive - for 2 days. Additional Activity Instructions:: Please be aware that pain medications may cause nausea. You should typically eat light foods as you take your pain medication. Pain medication may cause constipation, if this is a problem for you, please discuss with your doctor. Call your doctor if your incision/area has: Continuous Slow Oozing, Sudden Increased Bleeding, Increased Pain/ Swelling, Increased Redness, Foul Smelling Discharge, Swelling at the incision site Call your doctor if you observe: Fever of 101 or Higher, Uncontrolled pain Suture Line Care: Avoid Pulling/Pushing, Avoid Pinching/Bending Instructions: Shock Wave Lithotripsy Allergies/Adverse Reactions: Allergies No Known Allergies Allergy (Verified 08/01/19 11:33) Medications to take at Discharge Ondansetron [Zofran Odt] 4 mg PO Q6H PRN PRN #14 tab 07/24/19 Cephalexin [Keflex] 500 mg PO Q8 #10 cap 08/01/19 Hydrocodone/Acetaminophen [[place] 5-325 Tablet] 1 each PO Q4H PRN PRN 5 Days #14 tablet 08/01/19 The following prescriptions were given: Cephalexin [Keflex] 500 mg PO Q8 #10 cap Transmission Status: Pending to [facility] Hydrocodone/Acetaminophen [[place] 5-325 Tablet] 1 each PO Q4H PRN PRN 5 Days #14 tablet PRN Reason: Pain Score 1-10/10 Transmission Status: Sent to [facility] Primary Care Physician: Shanna Yeager DO [Primary Care Provider] - Test Results: Test results from this visit will be discussed in further detail at your follow-up appointment, if applicable. Please Follow Up With: Hesham Donnelly MD When: please call to make an appointment.
[2019-08-01] MEDS: Cefazolin 2 GM in 0.9% Normal Saline 100 ML IV (14:02)
--- NOTE | 2019-08-01 14:50 | OP.PCM_ITS ---
Problem List (1) Right renal stone Status: Acute Report of Operation Date of Procedure: 08/01/19 Pre-Operative Diagnosis: Right renal calculi Post-Operative Diagnosis: Same Surgery/Procedure Performed:: Cystoscopy right stent placement and right extracorporeal shockwave lithotripsy Description of Surgical Findings:: 49-year-old male with a 9 to 8 mm stone in the upper pole of the right kidney presents for shockwave lithotripsy at the hospital, patient was taken back to the operating room after smooth induction of general anesthesia he was placed in dorsolithotomy position. The penis and testicles were prepped and draped in usual sterile fashion. Went into the bladder with a 21 Setswana rigid cystourethroscope, cannulated the left ureteral orifice advanced a wire up into the kidney and over the wire advanced a stent, is a 6 Setswana by 26 cm stent left the string of the stent but cut it short to prevent extraction. We then repositioned the patient on the table and we deliver 3000 shockwaves to the stone in the upper pole the right kidney at the end of the treatment cycle the stones are broken up really into small little pieces of like a successful treatment. Patient anesthetic is currently being reversed plan to see him back next week with an x-ray and he will require cystoscopy stent removal to remove the stent and look like a successful treatment of the stone. Type of Anesthesia:: General Drains: stent right - Admit VTE Documentation VTE Present on Admission: No VTE Mechan Device Prophylaxis: SCD's
[2019-08-01] MEDS: Ketorolac 15 MG/ML Vial IV (15:53)
== END 2019-08-01 17:07 | disposition home or self-care (01) ==
LOC: SDC 10:58 → AC 11:01
PROVIDERS: PCP Family Medicine; Referring Provider Urology; Visit Provider Urology
PROC: (CPT 50590; principal; 2019-08-01 12:50)
DX: N20.2 Calculus of kidney with calculus of ureter (principal); N40.1 Benign prostatic hyperplasia with lower urinary tract symptoms; R97.20 Elevated prostate specific antigen [PSA]; G71.11 Myotonic muscular dystrophy; Z11.59 Encounter for screening for other viral diseases
CPT/HCPCS: 50590; 52332; 74018; 87635; G2023; J7120; C1769; C2617; U0004

== ENCOUNTER → 2020-03-08 16:37 | Outpatient (CLI) | payer BC, SELFPAY ==
[2019-08-01 11:34] VITALS: BMI 21.1
[2020-03-08 18:08] LABS: PSA,Total- Diagnostic 8.52 ng/mL (0.0-4.0)
== END ==
PROVIDERS: PCP Family Medicine; Visit Provider Urology
DX: R97.20 Elevated prostate specific antigen [PSA] (principal)
CPT/HCPCS: 36415; 84153

== ENCOUNTER 2023-12-15 16:58 | Emergency (ER) | payer BC, SELFPAY ==
[2023-12-15 16:59] VITALS: BP 155/97; PULSE 76; RESP 15; TEMP 36.3; O2SAT 100; BMI 22.1
[2023-12-15] MEDS: Ondansetron 4 MG/2 ML Vial IV (18:04)
[2023-12-15 18:09] LABS: Absolute Lymphocyte Count 0.94 X10^3/uL (0.83-4.51); Absolute Neutrophil Count 5.3 X10^3/uL (2.0-7.7); Basophil# 0.01 X10^3/uL; Basophil% 0.1 % (0-1); Eosinophil# 0.03 X10^3/uL; Eosinophils% 0.4 % (0-5); Hematocrit 40.6 % (40-54); Hemoglobin 13.9 g/dL (13.0-16.5); Lymphocyte # 0.94 X10^3/ul (0.83-4.51); Lymphocyte % 13.8 % (19-41); Mean Corp Hgb Conc 34.2 g/dL (32-36); Mean Corpuscular Hgb 32.1 pg (27.0-32.0); Mean Corpuscular Volume 93.8 fL (80-94); Mean Platelet Vol. 9.4 fl (6.2-12.0); Monocyte# 0.54 X10^3/uL; Monocyte% 7.9 % (0-10); NRBC Flagged by Analyzer 0 % (0-5); Neutrophil # 5.26 X10^3/uL (2.7-7.7); Neutrophil % 77.5 % (47-70); Platelet Count 216 K/mm3 (150-450); RBC Distribution Width CV 12.8 % (11.6-14.6); RBC Distribution Width SD 44.3 fl (35.1-43.9); Red Blood Count 4.33 M/mm3 (4.6-6.2); White Blood Count 6.8 K/mm3 (4.4-11.0)
[2023-12-15] MEDS: Famotidine 200 MG/20 ML MDV 20 MG in 0.9% Normal Saline (Pres. free 8 ML 300 MG IV (18:11)
--- NOTE | 2023-12-15 18:12 | ED.VIS.GI ---
HPI HPI - GI History of Present Illness Chief Complaint: Abd Pain Informant: patient and spouse/S.O. Narrative Narrative: Presents recurrent epigastric abdominal pain today. 2 days ago was at a dinner potluck, ate a large meal felt some discomfort kept him up throughout the night. He vomited 5:30 AM Sunday morning no hematemesis. 7 loose watery stools since then. Pain went away yesterday today symptoms returned. Yesterday had slight chills slight nausea. Upon my evaluation he states pain resolved 5 minutes prior to my evaluation. Denies any abdominal surgeries. Denies any allergies. States he had 1 alcoholic drink on . Scale other states called other people, unaware of anybody else that is sick. He ate half piece of toast today. PFSH PFSH Home Medications ?Medication ?Instructions ?Recorded ?Last Taken ?Type ondansetron 4 mg disintegrating 4 mg PO Q6H PRN PRN Nausea #14 tabs 07/24/19 Unknown Rx tablet cephalexin 500 mg capsule 500 mg PO Q8 #10 caps 08/01/19 Unknown Rx dicyclomine 10 mg capsule 20 mg (2 x 10 mg) PO TIDAC PRN 12/15/23 Unknown Rx abdominal pain #20 CAPSULES famotidine 20 mg tablet 20 mg PO BID #28 TABLETS 12/15/23 Unknown Rx ondansetron 4 mg disintegrating 4 mg PO Q8H PRN PRN Nausea #10 tabs 12/15/23 Unknown Rx tablet Allergy/AdvReac Type Severity Reaction Status Date / Time No Known Allergies Allergy Verified 12/15/23 16:58 Social History Smoking Status: Unknown if ever smoked ROS ROS ED Constitutional Constitutional ED: Reports chills; Denies fever(s) or sweats Eyes Eyes: Denies change in vision ENT ENT ED: Denies dysphagia or sore throat Cardiovascular Cardiovascular: Denies chest pain, leg edema, palpitations or racing heartbeat Respiratory/Chest Respiratory/Chest: Denies cough, dyspnea or dyspnea on exertion Gastrointestinal Gastrointestinal: Reports abdominal pain, diarrhea, nausea and vomiting Genitourinary Genitourinary ED: Denies dysuria, hematuria or urinary frequency Musculoskeletal Musculoskeletal: Reports myalgias; Denies back pain, extremity pain or neck pain Integumentary Denies rash or wounds Neurologic Neurologic: Denies headache(s), paresthesias or weakness EXAM Physical Exam Const Vital Signs: 12/15/23 16:59 12/15/23 18:58 12/15/23 19:59 Temperature 97.4 F L 98.5 F Temperature Source Oral Pulse Rate 76 75 64 Respiratory Rate 15 18 16 Blood Pressure 155/97 H 104/65 105/73 Blood Pressure Mean 116 78 83 Pulse Ox 100 92 Oxygen Delivery Method Room Air Positive well nourished and well developed Constitutional Narrative: Nontoxic General Appearance ED: well developed and NAD HEENT HEENT Narrative: Mild dry mucosal membranes. normocephalic and atraumatic Eyes EOMs intact bilaterally and conjunctivae normal General Eye ED: Yes normal appearance of both eyes Neck no lymphadenopathy and supple General: Negative for tenderness Chest Wall Chest: Negative for tenderness Resp normal respiratory effort and normal air movement Effort and Inspection: symmetric chest movement; Negative for respiratory distress Cardio regular rate, regular rhythm and no murmurs Peripheral Pulses: pulses 2+ throughout GI normal to inspection, nondistended, normoactive bowel sounds and non-tender GI Narrative: Negative Leon's or McBurney's tenderness. No epigastric tenderness. Palpation: Negative for guarding or rebound tenderness present Back/Spine no CVA tenderness and no thoracic nor lumbar tenderness Extremity normal to inspection General Extremety ED: Negative for edema or tenderness General Extremity: Negative for edema Neuro oriented x3 and no sensory deficits noted Sensorium / Orientation: awake and alert Skin no rashes or lesions noted and no wounds MDM MDM MDM Narrative Medical decision making narrative: Interventions / MDM: Differential diagnosis: Gastroenteritis, gastritis Diagnosis considered but do not suspect: No clinical cholecystitis. No clinical appendicitis. Pancreatitis however lipase normal. My EKG interpretation: N/A Imaging independently reviewed and interpreted by myself: N/A External documents reviewed: N/A Test considered but not ordered:N/A ED course: Vital stable nontoxic slight dry mucosal membranes. Symptoms resolved during my exam. Will check abdominal labs will give Zofran Pepcid. Will allow p.o. fluids as there is severe national shortage and IV fluids at this time. Will reevaluate. Reevaluation remains symptom-free. Able to tolerate p.o. fluids in ED. Potassium slightly low at 3.2 this was orally replaced. Consistent with his history of diarrhea. He will continue oral fluids for hydration. Prescription for Pepcid, Zofran and Bentyl written for symptom control. Return precaution discussed. All questions were answered. Re-evaluation: stable Disposition discussed with patient/family/significant other: Patient and significant other Case discussed with consulting clinician: N/A This note was generated with Finderly dictation software. It may contain incorrect words, spelling, and punctuation that were not noted in checking the note before signing. Lab Data Attestation: I reviewed the patient's lab results. Labs: Laboratory Results - last 24 hr 12/15/23 17:40 WBC 6.8 RBC 4.33 L Hgb 13.9 Hct 40.6 MCV 93.8 MCH 32.1 H MCHC 34.2 RDW Std Deviation 44.3 H RDW Coeff of [place] 12.8 Plt Count 216 MPV 9.4 Immature Gran % (Auto) 0.300 Neut % (Auto) 77.5 H Lymph % (Auto) 13.8 L [place] % (Auto) 7.9 Eos % (Auto) 0.4 Baso % (Auto) 0.1 Absolute Neuts (auto) 5.3 Absolute Lymphs (auto) 0.94 Nucleated RBC % 0 Sodium 139 Potassium 3.2 L Chloride 107 Carbon Dioxide 25.0 Anion Gap 7 BUN 11 Creatinine 0.76 Estim Creat Clear Calc 109.42 Est GFR (MDRD) Af Amer 139 Est GFR (MDRD) Non-Af 115 BUN/Creatinine Ratio 14.5 Glucose 111 H Calcium 9.9 Total Bilirubin 1.50 H AST 33 ALT 34 Alkaline Phosphatase 75 Total Protein 6.6 Albumin 3.4 Globulin 3.2 Albumin/Globulin Ratio 1.1 Lipase 19 Discharge Plan Triage Chief Complaint: Abd Pain ED Provider: Tom Ngo Dx/Rx/DC Orders Clinical Impression: Gastroenteritis, Hypokalemia Instructions: ED Gastroenteritis, Viral (Adult) Prescriptions: New famotidine 20 mg tablet 20 mg PO BID Qty: 28 0RF dicyclomine 10 mg capsule 20 mg PO TIDAC PRN (Reason: abdominal pain) Qty: 20 0RF ondansetron 4 mg tablet,disintegrating 4 mg PO Q8H PRN PRN (Reason: Nausea) Qty: 10 0RF No Action ondansetron 4 MG tablet 4 mg PO Q6H PRN PRN (Reason: Nausea) Qty: 14 0RF cephalexin 500 MG capsule 500 mg PO Q8 Qty: 10 0RF Primary Care Provider: Shanna Yeager Referrals: Shanna Yeager DO [Primary Care Provider] - 1 Week Activity Restrictions/Additional Instructions: Labs with potassium 3.2. Normal lipase and liver enzymes. White count normal. Continue oral fluids for hydration. Take medication as prescribed. Follow-up your doctor. Symptoms worsen not controlled medications, return to ED for reevaluation. Print Language: Sami Disposition Disposition: Home, Self Care Discharge Date/Time: 12/15/23 20:21
[2023-12-15 18:31] LABS: ALB/GLOB Ratio 1.1 RATIO (0.9-2.4); AST(SGOT) 33 U/L (15-37); Alanine Aminotransfer ALT/SGPT 34 U/L (16-61); Albumin, Serum 3.4 g/dL (3.2-5.0); Alkaline Phosphatase 75 U/L (45-117); Anion Gap 7 (5-15); BUN 11 mg/dL (7-18); BUN/Creat Ratio 14.5 RATIO (10-20); Calcium,Total 9.9 mg/dL (8.5-10.1); Chloride 107 mmol/L (98-107); Creatinine, Serum 0.76 mg/dL (0.70-1.30); EST Glomerular Filtration Rate 115 mL/min (>60); Est Glom Filt Rate - Afr Amer 139 mL/min (>60); Estimated Creatinine Clearance 109.42 ml/min; Globulin 3.2 g/dL (2.2-4.2); Glucose 111 mg/dL (74-106); Lipase 19 U/L (13-75); Potassium 3.2 mmol/L (3.5-5.1); Protein, Total 6.6 g/dL (6.4-8.2); Sodium Level 139 mmol/L (136-145)
[2023-12-15 18:58] VITALS: BP 104/65; PULSE 75; RESP 18
[2023-12-15] MEDS: Potassium Chloride Oral Tablet 20 MEQ 40 MEQ PO (19:28)
[2023-12-15 19:59] VITALS: BP 105/73; PULSE 64; RESP 16; TEMP 36.9; O2SAT 92
== END 2023-12-15 20:21 | disposition home or self-care (01) ==
PROVIDERS: Emergency Provider Emergency Medicine; PCP Family Medicine; Visit Provider Emergency Medicine
DX: K52.9 Noninfective gastroenteritis and colitis, unspecified (principal); E87.6 Hypokalemia; Z79.899 Other long term (current) drug therapy
CPT/HCPCS: 80053; 83690; 85025; 96374; 96375; 99283; J7040; A4216; J2405; J3490

== ENCOUNTER → 2024-12-11 | Outpatient (CLI) | payer BC, SELFPAY | END | disposition home or self-care (01) | LOC: LABSPEC 12-12 08:23 | PROVIDERS: Visit Provider Family Medicine | DX: Z00.00 Encounter for general adult medical examination without abnormal findings (principal); Z13.29 Encounter for screening for other suspected endocrine disorder; Z13.0 Encounter for screening for diseases of the blood and blood-forming organs and certain disorders involving the immune mechanism | CPT/HCPCS: 84443 ==